=== PATIENT | male | born 1970 | race Caucasian/White ===

== ENCOUNTER 2020-12-07 15:44 | Emergency (ER) | payer OTHER, MEDICAID ==
[~2020-12-07] VITALS: Ht 182.9 cm; Wt 99.8 kg
[2020-12-07 15:44] VITALS: BP_SYST 156
[~2020-12-07 15:44] MED LIST: ALBMDI INH; BUSP30TA2 PO; ESCI20TA PO; MECL25TA3 PO; PHEN100C4 PO; QUET200T PO; QUET400T PO; RISP2TAB5 PO; SIMV20TA2 PO; TYC3 PO
[2020-12-07] MEDS ORDERED: BACITRACIN 1 GM OINT TP ONE (16:00)
[2020-12-07] MEDS ORDERED: LIDOCAINE 1% 10 MG/ML, 20 ML MDV INJ ONE (16:00)
[2020-12-07] MEDS ORDERED: DIPH-TET-PERTUS Vaccine 0.5 ML VIAL (ADACEL) I.M. ONE ×2 (16:45)
== END 2020-12-07 17:18 | disposition home or self-care (01) ==
LOC: SED 15:44
DX: S01.81XA Laceration without foreign body of other part of head, initial encounter (principal); I10 Essential (primary) hypertension; J45.909 Unspecified asthma, uncomplicated; E78.00 Pure hypercholesterolemia, unspecified; Z79.899 Other long term (current) drug therapy; W18.39XA Other fall on same level, initial encounter; Y93.89 Activity, other specified; Y92.89 Other specified places as the place of occurrence of the external cause; Y99.8 Other external cause status
CPT/HCPCS: 12013; 90471; 90715; 99283; J2001

== ENCOUNTER 2020-12-09 09:31 | Emergency (ER) | payer OTHER, MEDICAID ==
[~2020-12-09] VITALS: Ht 182.9 cm; Wt 99.8 kg
[2020-12-09 09:42] VITALS: BP_SYST 154
[2020-12-09 10:30] VITALS: BP_SYST 154
== END 2020-12-09 10:15 | disposition home or self-care (01) ==
LOC: SED 09:31
DX: S01.81XD Laceration without foreign body of other part of head, subsequent encounter (principal); I10 Essential (primary) hypertension; J45.909 Unspecified asthma, uncomplicated; E78.00 Pure hypercholesterolemia, unspecified; Z79.899 Other long term (current) drug therapy; W18.39XD Other fall on same level, subsequent encounter
CPT/HCPCS: 99281